=== PATIENT | female | born 1960 | race Caucasian/White ===

== ENCOUNTER 2019-07-15 18:41 | Emergency (ER) | payer MEDICARE, MEDICAID, SELFPAY ==
--- NOTE | ~2019-07-15 | XR_ITS ---
EXAMINATION: XR hip LT 2V w AP pelvis DATE: 07/15/2019 19:27 INDICATION: Left hip pain post fall interval 2 weeks prior. TECHNIQUE: Anteroposterior view of the pelvis and anteroposterior and frog-leg lateral views of the l eft hip were obtained. COMPARISON: 11/30/2008 FINDINGS: Instrumented lumbosacral posterior spinal fusion at L5, L6 and S1. No fracture. Mild bilateral sacroi liac osteoarthritis. Bilateral hip joint spaces appear relatively preserved. Soft tissues are unremar kable. IMPRESSION: 1. No acute osseous abnormality. Reviewed, dictated and finalized at location A.
--- NOTE | ~2019-07-15 | XR_ITS ---
EXAMINATION: XR lumbar spine min 4V DATE: 07/15/2019 19:26 INDICATION: Lumbar pain 2 weeks post fall into a pool. TECHNIQUE: Anteroposterior and lateral views of the lumbar spine, and cone-down lateral view of the l umbosacral junction were obtained. COMPARISON: 07/20/2009 FINDINGS: There are 6 nonrib-bearing lumbar segments. 15 degrees lumbar dextroscoliosis measured between L2 and L5. L5 and L6 laminectomies. Posterior spinal fusion with bilateral vertical lois and pedicle screw f ixation at L5, L6 and S1. Vertebral body heights are normal. No evident fractures. Mild disc height l oss with degenerative endplate changes at T10-T11 through L1-L2. Mild left-sided disc height loss at L2-L3 and L3-L4 and mild to moderate left-sided predominant disc height loss at L4-L5. Mild bilateral sacroiliac osteoarthritis. IMPRESSION: 1. No acute osseous abnormality. 2. Mild lumbar dextroscoliosis with mild thoracolumbar spondylosis. 3. Instrumented posterior spinal fusion at L5, L6 and S1. Reviewed, dictated and finalized at location A.
[2019-07-15 18:50] VITALS: BP 113/64; PULSE 95; RESP 20; TEMP 36.6; O2SAT 95
--- NOTE | 2019-07-15 18:52 | ED.GENADULT ---
HPI - General Adult General Chief complaint: Extremity Injury, Lower Stated complaint: severe hip pain Time Seen by Provider: 07/15/19 18:52 Source: patient Mode of arrival: ambulatory Limitations: no limitations History of Present Illness HPI narrative: 58-year-old female patient presents to the [facility] with complaints of low back pain and left hip pain. Patient states that she fell about 2 weeks ago. Patient states that she slipped and kind of twisted and fell onto an empty aboveground pool from a deck. Patient states that she was able to get herself off of the pool but states that she noticed that she was having some pain. Patient states that she noticed that the pain is gotten worse especially when she tries to stand up straight. Patient states that she does have relief of pain when she is sitting upright with her legs elevated. Patient does have history of degenerative disc disease as well as a laminectomy in the past. Patient states she was scheduled for another laminectomy when the - pandemic hip. Patient states she is supposed to be following up with her surgeon third week of August. Patient states she has been taking her home Vicodin for her pain. Patient states that at times she does have some numbness and tingling down the legs but does improve with positioning. Patient states she has not had any loss of bowel or bladder control. Patient states that the pain starts in the middle of her left buttock and wraps around to the left hip especially when she stands up straight. Related Data Home Medications Medication Instructions Recorded Confirmed albuterol sulfate [ProAir HFA] 2 puff INHALATION QID PRN 02/18/19 07/15/19 cholecalciferol (vitamin D3) 5,000 unit PO DAILY 02/18/19 07/15/19 [Dialyvite Vitamin D] cyanocobalamin (vitamin B-12) 1,000 mcg IM DAILY 02/18/19 07/15/19 cyclobenzaprine 10 mg PO TID PRN 02/18/19 07/15/19 fluoxetine 40 mg PO DAILY 02/18/19 07/15/19 hydrocodone-acetaminophen [Ramey] 1 tablet PO Q8H PRN 02/18/19 07/15/19 ipratropium-albuterol 3 ml INHALATION QID PRN 02/18/19 07/15/19 lisinopril-hydrochlorothiazide 1 tablet PO DAILY 02/18/19 07/15/19 mirtazapine 15 mg PO DAILY 02/18/19 07/15/19 montelukast [Singulair] 10 mg PO DAILY 02/18/19 07/15/19 pantoprazole [Protonix] 40 mg PO HS 02/18/19 07/15/19 potassium chloride 10 meq PO BID 02/18/19 07/15/19 umeclidinium [Incruse Ellipta] 1 inh INHALATION DAILY 02/18/19 07/15/19 bupropion HCl 100 mg PO DAILY 07/15/19 07/15/19 fluticasone furoate-vilanterol 1 inh INHALATION DAILY 07/15/19 07/15/19 [Breo Ellipta] Allergies Allergy/AdvReac Type Severity Reaction Status Date / Time Sulfa (Sulfonamide Allergy Rash Verified 07/15/19 19:13 Antibiotics) hydromorphone [From Dilaudid] AdvReac Nausea and Verified 07/15/19 19:13 Vomiting Review of Systems Review of Systems: Narrative: CONSTITUTIONAL: Denies fever, chills, or sweats. EYES: Denies visual changes, redness, or discharge. ENT: Denies rhinorrhea, congestion, sore throat, or otalgia. CARDIOVASCULAR: Denies chest pain, palpitations, or edema. RESPIRATORY: Denies cough or dyspnea. GASTROINTESTINAL: Denies abdominal pain, nausea, vomiting, or diarrhea. GENITOURINARY: Denies dysuria or hematuria. SKIN: Denies rash or itching. MUSCULOSKELETAL: Positive low back pain and left hip pain, denies joint pain, or myalgia. NEUROLOGIC: Denies headache, numbness, or weakness. PSYCHIATRIC: Denies anxiety or depression. PMFSH Comments At the time of my signature I agree with nursing past medical history, surgical, social, and family history. There is no relevant family history pertinent to the presenting complaint. Exam Narrative: Exam Narrative: GENERAL: Well-appearing, well-nourished, and in no acute distress. HEAD: Normocephalic, atraumatic. EYES: PERRLA and EOMI. ENT: Nares clear, no rhinorrhea or epistaxis. Mucous membranes moist. NECK: Supple. No lymphadenopathy CHEST: Clear to auscultat
== END 2019-07-15 19:50 | disposition home or self-care (01) ==
PROVIDERS: Emergency Provider Nurse Practitioner Family
DX: M54.42 Lumbago with sciatica, left side (principal); I10 Essential (primary) hypertension; J44.9 Chronic obstructive pulmonary disease, unspecified; K21.9 Gastro-esophageal reflux disease without esophagitis; F41.9 Anxiety disorder, unspecified; F32.9 Major depressive disorder, single episode, unspecified; Z98.1 Arthrodesis status
CPT/HCPCS: 72110; 73502; 99213; G0463

== ENCOUNTER 2019-10-06 09:50 | Outpatient (CLI) | payer MEDICARE, MEDICAID, SELFPAY ==
--- NOTE | ~2019-10-06 | DEXA_ITS ---
BMD(1) Young-Adult(2,7) Age-Matched(3) Region (g/cm2) T-score Z-score WHO Classification Neck Left 0.746 -2.1 -1.1 Osteopenia Right 0.756 -2.0 -1.0 Osteopenia Mean 0.751 -2.1 -1.1 Osteopenia Difference 0.009 0.1 0.1 - Total Left 0.706 -2.4 -1.7 Osteopenia Right 0.679 -2.6 -1.9 Osteoporosis Mean 0.692 -2.5 -1.8 Osteoporosis Difference 0.027 0.2 0.2 - Hip [place] Length Comparison (mm) (Right = 106.4 mm) (Mean = 105.6 mm) (Left = 105.0 mm) Trend: Total Mean Change vs Change vs Measured Age BMD(1) Baseline Previous Date (years) (g/cm2) (%) (%) 10/06/2019 60.9 0.692 baseline - 1 - Statistically 68% of repeat scans fall within 1SD (+- 0.010 g/cm2 for DualFemur Total) 2 - [place] (Combined NHANES (ages 20-30) / [employer] (ages 20-40)) Femur Reference Population (v112) 3 - Matched for Age, Weight (females 25-100 kg), Ethnic 7 - DualFemur Total T-score difference is 0.2. Asymmetry is None. 11 - World Health Organization - Definition of Osteoporosis and Osteopenia for Women: Normal = T-score at or above -1.0 SD; Osteopenia = T-score between -1.0 and -2.5 SD; Osteoporosis = T-score at or below -2.5 SD; (WHO definitions only apply when a young healthy Women reference database is used to determine T-scores.) Printed: 10/06/2019 10:31:42 AM (13.60); Filename: [id number]; Right Femur; 19.7:%Fat=37.5%; Neck Angle (deg)= 67; Scan Mode: Standard 37.0 uGy; Left Femur; 19.8:%Fat=40.8%; Neck Angle (deg)= 62; Scan Mode: Standard 37.0 uGy Saberr [id number] Dear Tracy E. Mack, Your patient Kimberlee Mccoy completed a BMD test on 10/06/2019 using the Saberr DXA System (analysis version: 13.60) manufactured by [employer]. The following summarizes the results of our evaluation. PATIENT BIOGRAPHICAL: Name: Kimberlee Mccoy Date: 1960 Height: 64.0 in. Gender: Female Exam Date: 10/06/2019 Weight: 171.0 lbs. Indications: Back Pain, Caffeinated drinks, , Height Loss, Hip Pain, Hysterectomy, Menopause Fractures: Treatments: Albuteral, Vitamin D ASSESSMENT: The BMD measured at Femur Total Right is 0.679 g/cm2 with a T-score of -2.6. This patient is considered osteoporotic according to World Health Organization (WHO) criteria. Fracture risk is high. Pharmacological treatment, if not already prescribed, should be started. A follow up bone density test is recommended in one year to monitor response to therapy. Site Region Measured Measured WHO Young Adult Young Adult BMD Date Age Classification T-score AM Z-score DualFemur Neck Left 10/06/2019 60.9 Osteopenia -2.1 -1.1 0.746 g/cm2 DualFemur Neck Right 10/06/2019 60.9 Osteopenia -2.0 -1.0 0.756 g/cm2 DualFemur Total Right 10/06/2019 60.9 Osteoporosis -2.6 -1.9 0.679 g/cm2 DualFemur Total Mean 10/06/2019 60.9 Osteoporosis -2.5 -1.8 0.692 g/cm2 World Health Organization (WHO) criteria for post-menopausal, Women: Normal: T-score at or above -1 SD Osteopenia: T-score between -1 and -2.5 SD Osteoporosis: T-score at or below -2.5 SD
== END 2019-10-06 09:51 | disposition home or self-care (01) ==
LOC: CHSIMG 09:54
PROVIDERS: PCP Family Medicine; Visit Provider Family Medicine
DX: Z78.0 Asymptomatic menopausal state (principal); M48.062 Spinal stenosis, lumbar region with neurogenic claudication; M43.28 Fusion of spine, sacral and sacrococcygeal region
CPT/HCPCS: 77080

== ENCOUNTER 2019-10-09 08:22 | Outpatient (CLI) | payer MEDICARE, MEDICAID, SELFPAY ==
--- NOTE | ~2019-10-09 | MR_ITS ---
EXAMINATION: MR lumbar spine wo con DATE: 10/09/2019 09:00 INDICATION: Lumbar spinal stenosis. Left leg pain and numbness. TECHNIQUE: Magnetic resonance imaging (MRI) of the lumbar spine was performed without intravenous con trast. Sequences included sagittal T2-weighted FSE, sagittal T2-weighted FS FSE, sagittal T1-weighted FSE, and axial T2-weighted FSE. COMPARISON: Lumbar spine radiograph 07/15/2019 FINDINGS: There is 7 degrees dextrocurvature of lumbar spine. There is 5 mm anterolisthesis of L5 on S1. There are Schmorl's nodes at multiple levels. There are changes of posterior fusion procedure fro m L4 to S1 with pedicle screws. There is mildly decreased disc height at L3-L4 and moderately decreas ed disc height at L5-S1. There are disc calcifications at L4-L5 and L5-S1. The distal spinal cord sig nal intensity is normal. The conus medullaris is at T12. The following disc levels are specifically d iscussed: L1-L2: The disc does not extend beyond the endplate margin. There is mild bilateral facet joint osteo arthritis. There is no neural foraminal stenosis. There is no central canal stenosis. L2-L3: The disc does not extend beyond the endplate margin. There is mild right and moderate left fac et joint osteoarthritis. There is no neural foraminal stenosis. There is no central canal stenosis. L3-L4: The disc is bulging and has an annular fissure. There is severe bilateral facet joint osteoart hritis with synovial cyst on the right. There is moderate bilateral neural foraminal stenosis. There is moderate central canal stenosis. L4-L5: The disc is bulging. There is no facet joint hypertrophy. There is no neural foraminal stenosi s. There is mild central canal stenosis with posterior decompression. L5-S1: The disc is bulging. There is no facet joint hypertrophy. There is no neural foraminal stenosi s. There is no central canal stenosis. IMPRESSION: 1. Moderate lumbar spondylosis. 2. Posterior fusion procedure from L4 to S1. Reviewed, dictated and finalized at location A.
== END 2019-10-09 08:23 | disposition home or self-care (01) ==
LOC: CHSIMG 08:24
PROVIDERS: PCP Family Medicine
DX: M48.062 Spinal stenosis, lumbar region with neurogenic claudication (principal); M43.26 Fusion of spine, lumbar region
CPT/HCPCS: 72148

== ENCOUNTER 2020-10-10 12:10 | Emergency (ER) | payer MEDICARE, MEDICAID, SELFPAY ==
[2020-10-10 12:17] VITALS: BP 116/64; PULSE 86; RESP 20; TEMP 36.8; O2SAT 96
--- NOTE | 2020-10-10 12:44 | ED.SKABFB ---
HPI - Skin/Abscess/Foreign Bdy General Chief complaint: Skin/Abscess/Foreign Body Stated complaint: Rash on Stomach and Arms Source: patient Mode of arrival: ambulatory Limitations: no limitations History of Present Illness HPI narrative: Patient is a 59-year-old female who presents with a pruritic rash to bilateral arms and abdomen. Patient reports rash approximately 1 to 2 weeks. She reports trying [id number] medications without relief. She reports she has worked in the garden and also change in detergents. She denies all other complaints. MD complaint: rash Related Data Home Medications Medication Instructions Recorded Confirmed albuterol sulfate [ProAir HFA] 2 puff INHALATION QID PRN 02/18/19 10/10/20 cholecalciferol (vitamin D3) 5,000 unit PO DAILY 02/18/19 10/10/20 [Dialyvite Vitamin D] cyanocobalamin (vitamin B-12) 1,000 mcg IM DAILY 02/18/19 10/10/20 cyclobenzaprine 10 mg PO TID PRN 02/18/19 10/10/20 fluoxetine 40 mg PO DAILY 02/18/19 10/10/20 ipratropium-albuterol 3 ml INHALATION QID PRN 02/18/19 10/10/20 lisinopril-hydrochlorothiazide 1 tablet PO DAILY 02/18/19 10/10/20 mirtazapine 15 mg PO DAILY 02/18/19 10/10/20 montelukast [Singulair] 10 mg PO DAILY 02/18/19 10/10/20 pantoprazole [Protonix] 40 mg PO HS 02/18/19 10/10/20 potassium chloride 10 meq PO BID 02/18/19 10/10/20 umeclidinium [Incruse Ellipta] 1 inh INHALATION DAILY 02/18/19 10/10/20 bupropion HCl 100 mg PO DAILY 07/15/19 10/10/20 fluticasone furoate-vilanterol 1 inh INHALATION DAILY 07/15/19 10/10/20 [Breo Ellipta] Allergies Allergy/AdvReac Type Severity Reaction Status Date / Time Penicillins Allergy Unknown Verified 10/10/20 12:28 Sulfa (Sulfonamide Allergy Rash Verified 07/15/19 19:13 Antibiotics) hydromorphone [From Dilaudid] AdvReac Nausea and Verified 07/15/19 19:13 Vomiting Review of Systems Review of Systems: CONSTITUTIONAL: Denies fever, chills, or sweats. EYES: Denies visual changes, redness, or discharge. ENT: Denies rhinorrhea, congestion, sore throat, or otalgia. CARDIOVASCULAR: Denies chest pain, palpitations, or edema. RESPIRATORY: Denies cough or dyspnea. GASTROINTESTINAL: Denies abdominal pain, nausea, vomiting, or diarrhea. GENITOURINARY: Denies dysuria or hematuria. SKIN: Reports rash and itching. MUSCULOSKELETAL: Denies back pain, joint pain, or myalgia. NEUROLOGIC: Denies headache, numbness, dizziness, or weakness. PSYCHIATRIC: Denies anxiety or depression. [facility] Past Medical History Medical History COPD (chronic obstructive pulmonary disease) Depression Emphysema lung GERD (gastroesophageal reflux disease) HTN (hypertension) Family History Family History (Updated 10/10/20 @ 12:47 by CHEKO Willis) Other Heart disease Hypertension Social History Social History (Updated 10/10/20 @ 12:47 by CHEKO Willis) Smoking status: Former smoker Alcohol intake: current Alcohol use details: Occasional Substance use: never Living arrangements: with family Comments At the time of signature, I have reviewed and agree with nursing past medical, surgical, social, and family history unless otherwise noted. Please see nursing chart for further information. There is no relevant family history pertinent to the presenting complaint. Exam Narrative: GENERAL: Well-appearing, well-nourished, and in no acute distress. HEAD: Normocephalic, atraumatic. EYES: EOMI. No redness or drainage. Conjunctiva are normal. ENT: Mucous membranes pink and moist. CHEST: No respiratory distress. HEART: Regular rate and rhythm. EXTREMITIES: Normal range of motion. SKIN: Warm, dry, fine macular rash to bilateral arms and abdomen, no pustules. Abrasions noted from patient scratching. NEURO: No focal deficits. Alert and oriented x3. Gait steady. PSYCH: Normal affect. No signs of depression or anxiety. Course Vital Signs Vital sig
== END 2020-10-10 13:04 | disposition home or self-care (01) ==
PROVIDERS: Emergency Provider Nurse Practitioner; PCP Family Medicine
DX: L25.9 Unspecified contact dermatitis, unspecified cause (principal); Z87.891 Personal history of nicotine dependence; J44.9 Chronic obstructive pulmonary disease, unspecified; K21.9 Gastro-esophageal reflux disease without esophagitis; I10 Essential (primary) hypertension; F41.9 Anxiety disorder, unspecified
CPT/HCPCS: 99213; G0463

== ENCOUNTER 2022-03-28 13:43 | Emergency (ER) | payer MEDICARE, MEDICAID, SELFPAY ==
--- NOTE | ~2022-03-28 | XR_ITS ---
EXAMINATION: XR chest 2V DATE: 03/28/2022 14:11 INDICATION: Shortness of breath. Chest tightness. TECHNIQUE: Frontal and lateral views of the chest were obtained. COMPARISON: Chest 2 views 11/29/2008, chest CT 03/09/2009 FINDINGS: There is mild scarring at the lung apices. There is mild atelectasis versus scarring in the lower lung zones. No pleural effusion or pneumothorax. The heart size is normal. IMPRESSION: 1. Mild scarring at the lung apices and mild atelectasis versus scarring in the lower lung zones. Reviewed, dictated and finalized at location A. [employer]
[2022-03-28 13:50] VITALS: BP 150/70; PULSE 90; RESP 20; TEMP 36.5; O2SAT 93
--- NOTE | 2022-03-28 13:54 | ED.URI ---
HPI - URI/Sore Throat General Chief Complaint: Upper Respiratory Infection Stated Complaint: copd SOB Source: patient and RN notes reviewed History of Present Illness HPI Narrative: 61 yo F with hx of COPD, presents to urgent care with complaints of chest tightness, congestion, wheezing, and shortness of breath since yesterday. Pt states she has been using her inhalers and neb machine at home with moderate relief, last use was this morning. Denies any fevers, chills, chest pain, leg pain or swelling, V/D. Related Data Home Medications Medication Instructions Recorded Confirmed albuterol sulfate 90 mcg/actuation 2 puff inhalation QID PRN sob 02/18/19 10/10/20 aerosol inhaler (ProAir HFA) cholecalciferol (vitamin D3) 125 5,000 unit PO DAILY 02/18/19 10/10/20 mcg (5,000 unit) capsule (Dialyvite Vitamin D) cyanocobalamin (vitamin B-12) 1,000 mcg IM DAILY 02/18/19 10/10/20 1,000 mcg/mL injection solution cyclobenzaprine 10 mg tablet 10 mg PO TID PRN pain 02/18/19 10/10/20 fluoxetine 40 mg capsule 40 mg PO DAILY 02/18/19 10/10/20 ipratropium 0.5 mg-albuterol 3 mg 3 ml inhalation QID PRN sob 02/18/19 10/10/20 (2.5 mg base)/3 mL nebulization soln lisinopril 10 1 tablet PO DAILY 02/18/19 10/10/20 mg-hydrochlorothiazide 12.5 mg tablet mirtazapine 15 mg disintegrating 15 mg PO DAILY 02/18/19 10/10/20 tablet montelukast 10 mg tablet 10 mg PO DAILY 02/18/19 10/10/20 (Singulair) pantoprazole 40 mg tablet,delayed 40 mg PO HS 02/18/19 10/10/20 release (Protonix) potassium chloride 10 mEq 10 meq PO BID 02/18/19 10/10/20 tablet,extended release umeclidinium 62.5 mcg/actuation 1 inh inhalation DAILY 02/18/19 10/10/20 blister powder for inhalation (Incruse Ellipta) bupropion HCl 100 mg tablet 100 mg PO DAILY 07/15/19 10/10/20 fluticasone furoate 200 1 inh inhalation DAILY 07/15/19 10/10/20 mcg-vilanterol 25 mcg/dose inhalation powder (Breo Ellipta) alendronate 70 mg tablet mg PO 03/28/22 Allergies Allergy/AdvReac Type Severity Reaction Status Date / Time amoxicillin [From Augmentin] Allergy Rash Verified 03/28/22 13:51 clavulanic acid Allergy Rash Verified 03/28/22 13:51 [From Augmentin] Penicillins Allergy Unknown Verified 10/10/20 12:28 Sulfa (Sulfonamide Allergy Rash Verified 07/15/19 19:13 Antibiotics) hydromorphone [From Dilaudid] AdvReac Nausea and Verified 07/15/19 19:13 Vomiting Review of Systems Review of Systems: CONSTITUTIONAL: Denies fever, chills, or sweats. EYES: Denies visual changes, redness, or discharge. ENT: Denies otalgia and sore throat. Reports some congestion. CARDIOVASCULAR: Reports chest tightness. Denies chest pain, palpitations, or edema. RESPIRATORY: Reports cough and dyspnea. GASTROINTESTINAL: Denies abdominal pain, nausea, vomiting, or diarrhea. GENITOURINARY: Denies dysuria or hematuria. SKIN: Denies rash or itching. MUSCULOSKELETAL: Report right thoracic back pain. NEUROLOGIC: Denies headache, numbness, or weakness. PMFSH Past Medical History Medical History COPD (chronic obstructive pulmonary disease) Depression Emphysema lung GERD (gastroesophageal reflux disease) HTN (hypertension) Family History Family History (Updated 10/10/20 @ 12:47 by Ifeoma Palafox, DISTRIBUTOR OPERATOR) Other Heart disease Hypertension Social History Social History (Updated 10/10/20 @ 12:47 by Ifeoma Palafox, DISTRIBUTOR OPERATOR) Smoking status: Former smoker Alcohol intake: current Alcohol use details: Occasional Substance use: never Living arrangements: with family Comments At the time of my signature, I reviewed and agree with the nursing past medical, surgical, social, and family history. There is no relevant family history pertinent to the patient complaint. Exam Narrative: GENERAL: This is a well-nourished, well-developed patient, in no apparent distress. HEAD: normocephalic
== END 2022-03-28 14:29 | disposition home or self-care (01) ==
PROVIDERS: Emergency Provider Nurse Practitioner Family; PCP Nurse Practitioner
DX: J40 Bronchitis, not specified as acute or chronic (principal); Z87.891 Personal history of nicotine dependence; J44.9 Chronic obstructive pulmonary disease, unspecified; K21.9 Gastro-esophageal reflux disease without esophagitis; I10 Essential (primary) hypertension; F32.A Depression, unspecified
CPT/HCPCS: 71046; 99213; G0463

== ENCOUNTER 2022-08-19 14:57 | Emergency (ER) | payer MEDICARE, MEDICAID, SELFPAY ==
--- NOTE | ~2022-08-19 | XR_ITS ---
EXAMINATION: XR knee RT min 4V DATE: 08/19/2022 15:31 INDICATION: Palpable knot at the anterior right knee TECHNIQUE: Anteroposterior, 2 oblique, sunrise and crosstable lateral views of the right knee were ob tained COMPARISON: None. FINDINGS: Normal variant bipartite patella with unfused secondary apophyseal center at the superolateral margin of the patella. Bone alignment is normal. No fracture. At least mild joint space narrowing the media l compartment of the right knee which could be underestimated on nonweightbearing imaging. There is a lso mild joint space narrowing at the lateral side of the patellofemoral articulation. Small marginal osteophytes in all 3 compartments. No left knee joint effusion. Soft tissues are unremarkable. IMPRESSION: 1. Mild tricompartmental osteoarthritis at the right knee. No joint effusion or acute osseous abnorma lity. 2. Normal variant bipartite patella with small nonunited superolateral accessory apophyseal center. Reviewed, dictated and finalized at location A. IMPRESSION: 1. Mild tricompartmental osteoarthritis at the right knee. No joint effusion or acute osseous abnormality. 2. Normal variant bipartite patella with small nonunited superolateral accessor y apophyseal center.
[2022-08-19 15:04] VITALS: BP 152/75; PULSE 107; RESP 20; TEMP 36.7; O2SAT 93
--- NOTE | 2022-08-19 15:28 | ED.EXTPRO ---
HPI - Extremity Problem General Chief complaint: Extremity Problem,Nontraumatic Stated complaint: Knot on Right Knee History of Present Illness HPI Narrative: PATIENT PRESENTS WITH A 2 WEEK HISTORY OF SWELLING TO RIGHT OUTER SIDE OF RIGHT KNEE. PATIENT DENIES ANY INJURY BUT IS TENDER TO TOUCH NOT WARM TO TOUCH NO BRUISING. NORMAL ROM Related Data Home Medications Medication Instructions Recorded Confirmed albuterol sulfate 90 mcg/actuation 2 puff inhalation QID PRN sob 02/18/19 10/10/20 aerosol inhaler (ProAir HFA) cholecalciferol (vitamin D3) 125 5,000 unit PO DAILY 02/18/19 10/10/20 mcg (5,000 unit) capsule (Dialyvite Vitamin D) cyanocobalamin (vitamin B-12) 1,000 mcg IM DAILY 02/18/19 10/10/20 1,000 mcg/mL injection solution cyclobenzaprine 10 mg tablet 10 mg PO TID PRN pain 02/18/19 10/10/20 fluoxetine 40 mg capsule 40 mg PO DAILY 02/18/19 10/10/20 ipratropium 0.5 mg-albuterol 3 mg 3 ml inhalation QID PRN sob 02/18/19 10/10/20 (2.5 mg base)/3 mL nebulization soln lisinopril 10 1 tablet PO DAILY 02/18/19 10/10/20 mg-hydrochlorothiazide 12.5 mg tablet mirtazapine 15 mg disintegrating 15 mg PO DAILY 02/18/19 10/10/20 tablet montelukast 10 mg tablet 10 mg PO DAILY 02/18/19 10/10/20 (Singulair) pantoprazole 40 mg tablet,delayed 40 mg PO HS 02/18/19 10/10/20 release (Protonix) potassium chloride 10 mEq 10 meq PO BID 02/18/19 10/10/20 tablet,extended release umeclidinium 62.5 mcg/actuation 1 inh inhalation DAILY 02/18/19 10/10/20 blister powder for inhalation (Incruse Ellipta) bupropion HCl 100 mg tablet 100 mg PO DAILY 07/15/19 10/10/20 fluticasone furoate 200 1 inh inhalation DAILY 07/15/19 10/10/20 mcg-vilanterol 25 mcg/dose inhalation powder (Breo Ellipta) alendronate 70 mg tablet mg PO 03/28/22 Allergies Allergy/AdvReac Type Severity Reaction Status Date / Time amoxicillin [From Augmentin] Allergy Rash Verified 03/28/22 13:51 clavulanic acid Allergy Rash Verified 03/28/22 13:51 [From Augmentin] Penicillins Allergy Unknown Verified 10/10/20 12:28 Sulfa (Sulfonamide Allergy Rash Verified 07/15/19 19:13 Antibiotics) hydromorphone [From Dilaudid] AdvReac Nausea and Verified 07/15/19 19:13 Vomiting Review of Systems Review of Systems: CONSTITUTIONAL: DENIES FEVER, CHILLS, OR SWEATS. EYES: DENIES VISUAL CHANGES, REDNESS, OR DISCHARGE. ENT: DENIES RHINORRHEA, CONGESTION, SORE THROAT, OR OTALGIA. CARDIOVASCULAR: DENIES CHEST PAIN, PALPITATIONS, OR EDEMA. RESPIRATORY: DENIES COUGH OR DYSPNEA. GASTROINTESTINAL: DENIES ABDOMINAL PAIN, NAUSEA, VOMITING, OR DIARRHEA. GENITOURINARY: DENIES DYSURIA OR HEMATURIA. SKIN: DENIES RASH OR ITCHING. MUSCULOSKELETAL: DENIES BACK PAIN, JOINT PAIN, OR MYALGIA. NEUROLOGIC: DENIES HEADACHE, NUMBNESS, OR WEAKNESS. PSYCHIATRIC: DENIES ANXIETY OR DEPRESSION. [facility] Past Medical History Medical History COPD (chronic obstructive pulmonary disease) Depression Emphysema lung GERD (gastroesophageal reflux disease) HTN (hypertension) Family History Family History (Updated 10/10/20 @ 12:47 by Ifeoma Palafox, CHEKO) Other Heart disease Hypertension Social History Social History (Updated 10/10/20 @ 12:47 by Ifeoma Palafox, CHEKO) Smoking status: Former smoker Alcohol intake: current Alcohol use details: Occasional Substance use: never Living arrangements: with family Comments AT TIME OF SIGNATURE, AGREE WITH NURSING PAST MEDICAL, SURGICAL, SOCIAL AND FAMILY HISTORY. THERE IS NO RELEVANT FAMILY HISTORY PERTINENT TO THE PRESENTING COMPLAINT Exam Narrative: GENERAL: WELL-APPEARING, WELL-NOURISHED, AND IN NO ACUTE DISTRESS. HEAD: NORMOCEPHALIC, ATRAUMATIC. EYES: PERRLA AND EOMI. ENT: NARES CLEAR, NO RHINORRHEA OR EPISTAXIS. MUCOUS MEMBRANES MOIST. NECK: SUPPLE. CHEST: CLEAR TO AUSCULTATION. NO RESPIRATORY DISTRESS. HEART: REGULAR RATE
== END 2022-08-19 16:02 | disposition home or self-care (01) ==
PROVIDERS: Emergency Provider Nurse Practitioner Family
DX: M25.561 Pain in right knee (principal); Z87.891 Personal history of nicotine dependence; J44.9 Chronic obstructive pulmonary disease, unspecified; K21.9 Gastro-esophageal reflux disease without esophagitis; I10 Essential (primary) hypertension
CPT/HCPCS: 73564; 99213; G0463

== ENCOUNTER 2022-09-06 12:25 | Emergency (ER) | payer MEDICARE, MEDICAID, SELFPAY ==
--- NOTE | ~2022-09-06 | XR_ITS ---
Right wrist Technique: PA, oblique, lateral, and ulnar deviation views were obtained. Clinical History: Injury Findings: No acute fracture or dislocation is seen. There is severe osteoarthritis at the first CMC j oint. Soft tissues are unremarkable. Impression: No fracture or dislocation. 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 Reviewed, dictated and finalized at location . Impression: No fracture or dislocation. 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
--- NOTE | ~2022-09-06 | XR_ITS ---
Right Hand Technique: PA, oblique, and lateral views were obtained. Clinical History: Swelling Findings: No acute fracture or dislocation is seen. There is severe osteoarthritis at the first CMC j oint. There is mild degenerative change at the second and third DIP joints. Remaining joint spaces ar e preserved.. Soft tissues are unremarkable. Impression: No fracture or dislocation. Severe osteoarthritis of the first CMC joint. Mild osteoarthritis at the second and third DIP joints. Reviewed, dictated and finalized at location M. Impression: No fracture or dislocation. Severe osteoarthritis of the first CMC joint. Mild osteoarthritis at the second and third DIP joints.
--- NOTE | 2022-09-06 12:30 | ED.UPPEXIN ---
HPI - Extremity Injury (Upper) General Chief Complaint: Extremity Injury, Upper Stated Complaint: Fall Injury/Right Thumb/Shoulder Time Seen by Provider: 09/06/22 12:46 Source: patient and RN notes reviewed Mode of arrival: ambulatory Limitations: no limitations History of Present Illness HPI narrative: 61-year-old female presents with concern of for injury from a fall reports she fell off of a chair last night, she is not sure how she landed but she had her shoulder on the door knob. She reports pain in her right 1st digit and wrist. She reports mild tenderness to the posterior shoulder she reports difficulty making a fist. MD complaint: injury to: right, wrist and hand Related Data Home Medications Medication Instructions Recorded Confirmed albuterol sulfate 90 mcg/actuation 2 puff inhalation QID PRN sob 02/18/19 09/06/22 aerosol inhaler (ProAir HFA) cholecalciferol (vitamin D3) 125 5,000 unit PO DAILY 02/18/19 09/06/22 mcg (5,000 unit) capsule (Dialyvite Vitamin D) cyanocobalamin (vitamin B-12) 1,000 mcg IM DAILY 02/18/19 09/06/22 1,000 mcg/mL injection solution cyclobenzaprine 10 mg tablet 10 mg PO TID PRN pain 02/18/19 09/06/22 fluoxetine 40 mg capsule 40 mg PO DAILY 02/18/19 09/06/22 ipratropium 0.5 mg-albuterol 3 mg 3 ml inhalation QID PRN sob 02/18/19 09/06/22 (2.5 mg base)/3 mL nebulization soln lisinopril 10 1 tablet PO DAILY 02/18/19 09/06/22 mg-hydrochlorothiazide 12.5 mg tablet mirtazapine 15 mg disintegrating 15 mg PO DAILY 02/18/19 09/06/22 tablet montelukast 10 mg tablet 10 mg PO DAILY 02/18/19 09/06/22 (Singulair) pantoprazole 40 mg tablet,delayed 40 mg PO HS 02/18/19 09/06/22 release (Protonix) potassium chloride 10 mEq 10 meq PO BID 02/18/19 09/06/22 tablet,extended release umeclidinium 62.5 mcg/actuation 1 inh inhalation DAILY 02/18/19 09/06/22 blister powder for inhalation (Incruse Ellipta) bupropion HCl 100 mg tablet 100 mg PO DAILY 07/15/19 09/06/22 fluticasone furoate 200 1 inh inhalation DAILY 07/15/19 09/06/22 mcg-vilanterol 25 mcg/dose inhalation powder (Breo Ellipta) alendronate 70 mg tablet 70 mg PO DAILY 03/28/22 Allergies Allergy/AdvReac Type Severity Reaction Status Date / Time amoxicillin [From Augmentin] Allergy Rash Verified 09/06/22 12:34 clavulanic acid Allergy Rash Verified 09/06/22 12:34 [From Augmentin] Penicillins Allergy Unknown Verified 09/06/22 12:34 Sulfa (Sulfonamide Allergy Rash Verified 09/06/22 12:34 Antibiotics) hydromorphone [From Dilaudid] AdvReac Nausea and Verified 09/06/22 12:34 Vomiting Review of Systems Review of Systems: CONSTITUTIONAL: Denies malaise, chills, sweats, or fever. SKIN: Denies rash or itching, open skin, laceration, abrasion, redness, warmth MUSCULOSKELETAL: Reports right arm pain, hand swelling NEUROLOGIC: Denies numbness, weakness All systems reviewed & are unremarkable except as noted in HPI and below PMFSH Past Medical History Medical History COPD (chronic obstructive pulmonary disease) Depression Emphysema lung GERD (gastroesophageal reflux disease) HTN (hypertension) Family History Family History (Updated 10/10/20 @ 12:47 by Ifeoma Palafox, [employer]) Other Heart disease Hypertension Social History Social History (Updated 10/10/20 @ 12:47 by Ifeoma Palafox, [employer]) Smoking status: Former smoker Alcohol intake: current Alcohol use details: Occasional Substance use: never Living arrangements: with family Comments At time of signature, agree with nursing past medical, surgical, social and family history. There is no relevant family history pertinent to the presenting complaint Exam Narrative: GENERAL: Well-appearing, well-nourished, and in no acute distress. HEAD: Normocephalic, atraumatic. EYES: PERRLA, conjunctivae clear NECK: Supple. CHEST: Speaks in full sentences. No resp
[2022-09-06 12:35] VITALS: BP 145/92; PULSE 83; RESP 18; TEMP 36.3; O2SAT 97
== END 2022-09-06 13:26 | disposition home or self-care (01) ==
PROVIDERS: Emergency Provider Nurse Practitioner; PCP Nurse Practitioner
DX: S63.501A Unspecified sprain of right wrist, initial encounter (principal); S66.911A Strain of unspecified muscle, fascia and tendon at wrist and hand level, right hand, initial encounter; W07.XXXA Fall from chair, initial encounter; J44.9 Chronic obstructive pulmonary disease, unspecified; K21.9 Gastro-esophageal reflux disease without esophagitis; I10 Essential (primary) hypertension; Z87.891 Personal history of nicotine dependence; F32.A Depression, unspecified
CPT/HCPCS: 73110; 73130; 99213; G0463

== ENCOUNTER 2022-10-03 17:03 | Emergency (ER) | payer MEDICARE, MEDICAID, SELFPAY ==
[2022-10-03 17:11] VITALS: BP 119/80; PULSE 95; RESP 16; TEMP 36.2; O2SAT 97
--- NOTE | 2022-10-03 17:35 | ED.SKABFB ---
HPI - Skin/Abscess/Foreign Bdy General Chief complaint: Skin/Abscess/Foreign Body Stated complaint: Rash Source: patient and RN notes reviewed History of Present Illness HPI narrative: 61 yo F presents to urgent care with complaints of generalized hives. Pt states she has been dealing with intermittent hives since the middle of August. Pt has seen her MD for this and placed steroids twice for this. Pt states this episode started yesterday. Pt denies any fevers, chills, SOB, chest pain, or vomiting. Pt has attempted Benadryl, triamcinolone cream, and other OTC remedies without relief. Denies any new meds, lotions, soaps, or detergents. Related Data Home Medications Medication Instructions Recorded Confirmed albuterol sulfate 90 mcg/actuation 2 puff inhalation QID PRN sob 02/18/19 10/03/22 aerosol inhaler (ProAir HFA) cholecalciferol (vitamin D3) 125 5,000 unit PO DAILY 02/18/19 10/03/22 mcg (5,000 unit) capsule (Dialyvite Vitamin D) cyanocobalamin (vitamin B-12) 1,000 mcg IM DAILY 02/18/19 10/03/22 1,000 mcg/mL injection solution cyclobenzaprine 10 mg tablet 10 mg PO TID PRN pain 02/18/19 10/03/22 fluoxetine 40 mg capsule 40 mg PO DAILY 02/18/19 10/03/22 ipratropium 0.5 mg-albuterol 3 mg 3 ml inhalation QID PRN sob 02/18/19 10/03/22 (2.5 mg base)/3 mL nebulization soln lisinopril 10 1 tablet PO DAILY 02/18/19 10/03/22 mg-hydrochlorothiazide 12.5 mg tablet mirtazapine 15 mg disintegrating 15 mg PO DAILY 02/18/19 10/03/22 tablet montelukast 10 mg tablet 10 mg PO DAILY 02/18/19 10/03/22 (Singulair) pantoprazole 40 mg tablet,delayed 40 mg PO HS 02/18/19 10/03/22 release (Protonix) potassium chloride 10 mEq 10 meq PO BID 02/18/19 10/03/22 tablet,extended release umeclidinium 62.5 mcg/actuation 1 inh inhalation DAILY 02/18/19 10/03/22 blister powder for inhalation (Incruse Ellipta) bupropion HCl 100 mg tablet 100 mg PO DAILY 07/15/19 10/03/22 fluticasone furoate 200 1 inh inhalation DAILY 07/15/19 10/03/22 mcg-vilanterol 25 mcg/dose inhalation powder (Breo Ellipta) alendronate 70 mg tablet 70 mg PO DAILY 03/28/22 10/03/22 Allergies Allergy/AdvReac Type Severity Reaction Status Date / Time amoxicillin [From Augmentin] Allergy Rash Verified 10/03/22 17:26 clavulanic acid Allergy Rash Verified 10/03/22 17:26 [From Augmentin] Penicillins Allergy Unknown Verified 10/03/22 17:26 Sulfa (Sulfonamide Allergy Rash Verified 10/03/22 17:26 Antibiotics) hydromorphone [From Dilaudid] AdvReac Nausea and Verified 10/03/22 17:26 Vomiting Review of Systems Review of Systems: CONSTITUTIONAL: Denies fever, chills, or sweats. EYES: Denies visual changes, redness, or discharge. ENT: Denies otalgia and sore throat CARDIOVASCULAR: Denies chest pain, palpitations, or edema. RESPIRATORY: Denies cough or dyspnea. GASTROINTESTINAL: Denies abdominal pain, nausea, vomiting, or diarrhea. GENITOURINARY: Denies dysuria or hematuria. SKIN: Hives MUSCULOSKELETAL: Denies back pain, joint pain, or myalgia. NEUROLOGIC: Denies headache, numbness, or weakness. Pertinent positives per HPI. [facility] Past Medical History Medical History COPD (chronic obstructive pulmonary disease) Depression Emphysema lung GERD (gastroesophageal reflux disease) HTN (hypertension) Family History Family History (Updated 10/10/20 @ 12:47 by Ifeoma Palafox, CHEKO) Other Heart disease Hypertension Social History Social History (Updated 10/10/20 @ 12:47 by Ifeoma Palafox, CHE[employer]) Smoking status: Former smoker Alcohol intake: current Alcohol use details: Occasional Substance use: never Living arrangements: with family Comments At the time of my signature, I reviewed and agree with the nursing past medical, surgical, social, and family history. There is no relevant family history pertinent to the patient complaint. Exam
[2022-10-03] MEDS: methylPREDNISolone SOD SUCC 125 MG VIAL IM (17:40)
== END 2022-10-03 18:00 | disposition home or self-care (01) ==
PROVIDERS: Emergency Provider Nurse Practitioner Family; PCP Nurse Practitioner
DX: L50.9 Urticaria, unspecified (principal); Z87.891 Personal history of nicotine dependence; J44.9 Chronic obstructive pulmonary disease, unspecified; K21.9 Gastro-esophageal reflux disease without esophagitis; I10 Essential (primary) hypertension; F32.A Depression, unspecified
CPT/HCPCS: 96372; 99213; G0463; J2930